=== PATIENT | male | born 1990 | race Hispanic/Latino ===

== ENCOUNTER 2021-02-08 | Emergency (ER) | payer SELFPAY ==
[2021-02-08] MEDS ORDERED: ZPAK PO (18:37)
[2021-02-08] MEDS ORDERED: CENTRUM ADULTS1 TAB PO (18:37)
== END 2021-02-08 18:58 | disposition home or self-care (01) | DRG 204 ==
DX: R05 Cough (principal); Z20.822 Contact with and (suspected) exposure to COVID-19